=== PATIENT | male | born 1970 ===

== ENCOUNTER 2016-09-30 08:57 | Inpatient (IN) | payer OTHER ==
[~2016-09-30] VITALS: Ht 188 cm; Wt 165.1 kg
[2016-09-30] VITALS (13 sets, daily range): BP systolic 99–146; BP diastolic 65–97
[~2016-09-30 08:57] MED LIST: ceFAZolin 2gm/50ml Premix 50 ML IVPB ONE
[2016-09-30] MEDS ORDERED: CHLORTHALIDONE25 MG ORAL (09:26)
[2016-09-30] MEDS ORDERED: TENORMIN50 MG ORAL (09:26)
[2016-09-30] MEDS ORDERED: AMLODIPINE BESY10 MG ORAL (09:26)
[2016-09-30] MEDS ORDERED: ceFAZolin 2gm/50ml Premix 50 ML IV SCH (09:30)
--- NOTE | 2016-09-30 11:51 | Anethesia Preoperative Eval ---
Anesthesia Pre-op PMH/ROS General Date of Evaluation: Sep 30, 2016 Time of Evaluation: 12:30 ASA Score: ASA 2 Mallampati Score Class I : Soft palate, uvula, fauces, pillars visible Class II: Soft palate, uvula, fauces visible Class III: Soft palate, base of uvula visible Class IV: Only hard plate visible Mallampati Classification: Class II Anesthesia History: none Family History: no anesthesia problems Allergies: Coded Allergies: No Known Allergies (Unverified , 09/28/16) Past Medical History Cardiovascular: Reports: HTN Anesthesia Pre-op Phys. Exam Physician Exam Last Vital Signs Date Time Temp Pulse Resp B/P Pulse Ox O2 Delivery O2 Flow Rate FiO2 09/30/16 09:41 97.5 50 17 132/97 93 Room Air Constitutional: NAD Neurologic: CN 2-12 intact Cardiovascular: RRR Respiratory: CTA Airway Exam Mallampati Score: Class II MO: full ROM: full Teeth: intact Anesthesia Pre-op A/P Risk Assessment & Plan Plan: GA Status Change Before Surgery: No Pre-Antibiotics Given Within 1 Hr of Incision: Yes Moreno Wang M.D. Sep 30, 2016 11:51
--- NOTE | 2016-09-30 12:42 | Pre-Procedure Note/Attestation ---
Pre-Procedure Note/Attestation Complete Prior to Procedure Procedure Narrative: L345 laminoforaminotomy/discectomy Indications for Procedure Pre-Operative Diagnosis: L345 Stenosis/disc protrusion Attestation I attest that I discussed the nature of the procedure; its benefits; risks and complications; and alternatives (and the risks and benefits of such alternatives ), prior to the procedure, with the patient (or the patient's legal bank representative). I attest that, if there was a reasonable possibility of needing a blood transfusion, the patient (or the patient's legal bank representative) was given the [facility] standardized written summary, pursuant to the Jeremias Kulwinder Blood Safety Act ([place] Health and Safety Code # 1645, as amended). I attest that I re-evaluated the patient just prior to the surgery and that there has been no change in the patient's H&P, except as documented below: MATT MONIQUE Sep 30, 2016 12:42
[2016-09-30] MEDS ORDERED: Thrombin 5000 units TOPIC ONE (12:48)
[2016-09-30] MEDS ORDERED: Thrombin 5000 units spray kit TOPIC ONE (12:48)
[2016-09-30] MEDS ORDERED: Bupivacaine w/Epi 0.5% 30ml Vial INJ ONE (12:48)
[2016-09-30] MEDS ORDERED: Bacitracin 50000 Units Vial ONE (12:49)
[2016-09-30] MEDS ORDERED: Gelfoam Absorbable 1gm powder pkt TOPIC ONE (12:49)
[2016-09-30] MEDS ORDERED: NS Irrig 1000ml ONE (13:00)
[2016-09-30] MEDS ORDERED: Midazolam 2mg/2ml Inj ONE (13:00)
[2016-09-30] MEDS ORDERED: Succinylcholine 20mg/ml 10ml vial ONE (13:00)
[2016-09-30] MEDS ORDERED: fentaNYL 100 mcg/2 mL IV ONE (13:00)
[2016-09-30] MEDS ORDERED: Propofol 10mg/ml 20ml IV ONE (13:00)
[2016-09-30] MEDS ORDERED: Morphine Sulfate 10mg/ml Inj ONE (13:00)
[2016-09-30] MEDS ORDERED: Sterile Water Irrig 1000ml IRRIG ONE (13:00)
[2016-09-30] MEDS ORDERED: Glycopyrrolate 0.2mg/ml 1ml Vial ONE (13:00)
--- NOTE | 2016-09-30 14:03 | Immediate Post-Op Evaluation ---
Immediate Post-Op Evalulation Immediate Post-Op Evalulation Procedure: Bilateral Lumbar Lasha laminectomies Date of Evaluation: Sep 30, 2016 Time of Evaluation: 15:00 IV Fluids: 2000 Blood Products: 0 Estimated Blood Loss: 50 Urinary Output: 100 Blood Pressure Systolic: 110 Blood Pressure Diastolic: 78 Pulse Rate: 49 Respiratory Rate: 16 O2 Sat by Pulse Oximetry: 99 Temperature (Fahrenheit): 98 Pain Score (1-10): 0 Nausea: No Vomiting: No Patient Status: awake, reacts, patent Hydration Status: adequate Given Within 1 Hr of Incision: Moreno Anderson M.D. Sep 30, 2016 14:03
--- NOTE | 2016-09-30 14:04 | 48 Hour Post Anesthesia Eval ---
Post Anesthesia Evaluation Procedure: Bilateral Lumbar Lasha laminectomies Date of Evaluation: Oct 02, 2016 Time of Evaluation: 08:00 Blood Pressure Systolic: 140 0: 78 Pulse Rate: 50 Respiratory Rate: 16 Temperature (Fahrenheit): 98 O2 Sat by Pulse Oximetry: 99 Airway: patent Nausea: No Vomiting: No Hydration Status: adequate Mental Status/LOC: patient returned to baseline Follow-up care needed: patient intructions given Moreno Wang M.D. Sep 30, 2016 14:04
[2016-09-30] MEDS ORDERED: Ketorolac 30mg Inj IV PRN (14:15)
[2016-09-30] MEDS ORDERED: Norco 7.5mg/325mg tab ORAL PRN ×3 (14:15→15:45)
[2016-09-30] MEDS ORDERED: Norco 5mg/325mg tab ORAL PRN ×2 (14:15→15:45)
[2016-09-30] MEDS ORDERED: Morphine Sulfate 2mg/ml Inj IVP PRN (14:15)
[2016-09-30] MEDS ORDERED: fentaNYL 100 mcg/2 mL IV PRN (14:15)
[2016-09-30] MEDS ORDERED: Metoclopramide 10mg/2ml Inj IVP PRN ×2 (14:15→15:45)
--- NOTE | 2016-09-30 15:43 | Brief Operative Note ---
Immediate Post Operative Note Operative Note Pre-op Diagnosis: L345 Stenosis/disc protrusion Procedure: L3, L3 and partial L5 laminectomy Post-op Diagnosis: same as pre-op Findings: consistent w/pre-op dx studies Surgeon: shakira Anesthesiologist: nestor Anesthesia: general Specimen: none Complications: none Condition: stable Estimated Blood Loss: minimal Drains: hemovac Implant(s) used?: MATT Grady Sep 30, 2016 15:43
[2016-09-30] MEDS ORDERED: HYDROmorphone 1mg/ml Carpuject SUBQ PRN ×2 (15:45→20:45)
[2016-09-30] MEDS ORDERED: Milk of Magnesia 30ml Ud ORAL PRN (15:45)
[2016-09-30] MEDS: Hydromorphone 0.5mg/0.5ml inj IVP PRN ×2 (16:15→16:31)
[2016-09-30] MEDS: D5 1/2NS 1,000 ML IV SCH (17:40)
[2016-09-30] MEDS: Pericolace tab ORAL SCH (18:26)
[2016-09-30] MEDS: Docusate 100mg cap ORAL SCH (18:26)
[2016-09-30] MEDS ORDERED: Cyclobenzaprine 10mg Tab ORAL PRN (20:45)
[2016-09-30] MEDS ORDERED: Chloraseptic Spray 20mL Bottle ORAL PRN (20:45)
[2016-09-30] MEDS: Tamsulosin 0.4mg cap ORAL SCH (21:36)
[2016-09-30] MEDS: ceFAZolin sod 1 GM in D5W 55 ML IV SCH (21:36)
[2016-10-01 00:15] VITALS: BP 125/73
--- NOTE | 2016-10-01 03:30 | Operative Note - Dictated ---
DATE OF OPERATION: 09/30/2016 SURGEON: Jessee Camejo M.D. DISTRICT ASSOCIATE JUDGE: None. ANESTHESIOLOGIST: MD Phil ANESTHESIA TYPE: General endotracheal anesthesia. PREOPERATIVE DIAGNOSIS: Spinal stenosis, congenital L3, L4, and L5. POSTOPERATIVE DIAGNOSIS: Spinal stenosis, congenital L3, L4, and L5. PROCEDURE: 1. Bilateral laminectomy at L3, L4, and superior portion of L5. 2. Use of operating microscope. 3. Neurodiagnostic monitoring. 4. Use of fluoroscopy. 5. Surgery complicated due to the patient's obesity (BMI 48, total weight 370 pounds). ESTIMATED BLOOD LOSS: Minimal. COMPLICATIONS: None. FINDINGS: Moderately severe central stenosis L3 through L5. INDICATIONS: The patient is a very pleasant 46-year-old with fairly significant back pain and radiculopathic findings. MRI confirmed lateral recess stenosis L3-L4 and L4-L5. Surgical intervention was discussed after all conservative care had failed and the patient was noted to have neurogenic weakness in lower extremities. RISK NOTE: The patient was explained in detail the risks and benefits of surgery to include, but not be limited to, those of bleeding, infection, damage to nerves, vessels, tendons, anesthetic risk, allergic reaction, aspiration, and possibly . The patient elected to proceed. Specifically was discussed potential risk for developing post laminectomy instability. OPERATIVE PROCEDURE IN DETAIL: The patient was taken to the operative suite. After general endotracheal anesthesia was obtained, Engle catheter was placed. The patient was positioned prone onto a radiolucent [place]uneet side table. All bony prominences were well padded. The back was prepped and draped in usual sterile fashion. Fluoroscope was brought in place and the L3 through L5 levels were marked out. The skin was infiltrated with Marcaine with epinephrine. The incision was sharply carried down from L3 through S1. Subperiosteal dissection was carried out bilaterally. A Leslie crank was used to the self-retaining retractors. Please note that the other retractors were not deep enough to allow for adequate exposure. At this point, it was noted that the lamina was very narrow at both the L3 and L4 levels. Initially, my intent was to perform bilateral leonard-hole foraminotomies and laminotomies at both levels. However, due to the marked medial lateral narrowing of the lamina, it was elected to perform a central decompression. The spinous prostheses of L3 was partially removed as well as of L4 was completely removed. High-speed drill was then utilized under microscopic visualization to thin out the lamina. Laminectomy was then performed using the Kerrison 3 and Kerrison 4 punch. Complete laminectomy was performed at L4 and superior portion of L5 was also laminectomized with use of Kerrison punch and high-speed drill. The ligamentum flavum was then removed in a piecemeal fashion. The generous partial medial facetectomies were performed decompressing the lateral recesses. Neural foraminotomies were probed and noted to be adequately decompressed by decompressing the lateral recess. At this point, attention was turned to the L3 level and the inferior two-thirds of the lamina of L3 was also resected in a similar fashion using a high-speed drill and Kerrison punches. Once satisfied with the decompression, copious irrigation was performed. Meticulous hemostasis was achieved. However, due to the patient's deep incision, it was elected to place a medium-sized Hemovac drain. The drain was placed subfascially. Fascia was repaired using #1 Vicryl. Subcutaneous closure using 2-0 Vicryl, running 4-0 Monocryl. Dermabond was applied. The drain was taped into place with Steri-Strips. At the time of this dictation, the patient had been awakened, extubated, and transferred to recovery room in stable condition. Jessee Camejo M.D. DR: PIPO JOB#: [id number] CC: MILDRED
[2016-10-01] MEDS: D5 1/2NS 1,000 ML IV SCH ×2 (03:58→13:40)
[2016-10-01 04:00] VITALS: BP 111/65
--- NOTE | 2016-10-01 04:15 | Consultation ---
DATE OF CONSULTATION: 09/30/2016 CONSULTING PHYSICIAN: Moreno Devries M.D. REFERRING PHYSICIAN: Jessee Camejo M.D. REASON FOR CONSULT: Acute pain consult. HISTORY OF PRESENT ILLNESS: Dear Dr. Jessee Camejo, Thank you kindly for consulting me to evaluate and render an opinion as to how to proceed in the management of the patient's acute postoperative lumbar spine pain after his lumbar spine surgery today. The patient is a massively obese 46-year-old man who lumbar spine back in April. The patient complained of severe pain postoperatively. He required multiple doses of Dilaudid, but supposedly this pain control is inadequate. With his massive obesity, you consulted me for acute pain consultation to best optimize his pain control and minimize the risk for postoperative complications. I saw the patient at bedside with his . I discussed the case with yourself, Dr. Camejo along with the hospital pharmacist and the nurse RN, Muriel. I spent over 75 minutes in consultation with an additional 30 minutes and medical records reviewed. PAST MEDICAL HISTORY: 1. Acute postoperative lumbar spine pain, status post lumbar spine surgery by Dr. Jessee Camejo in 09/2016. 2. Work-related injury. 3. Massive obesity. 4. Hypertension. PAST SURGICAL HISTORY: None prior. FAMILY HISTORY: Negative. SOCIAL HISTORY: The patient lives at home with his . He denies tobacco, alcohol, or illicit drug use for over 10 years. ALLERGIES: No known drug allergies. MEDICATIONS: At home, NSAIDs, Norvasc, atenolol, and chlorthalidone. REVIEW OF SYSTEMS: Per attending physician. PHYSICAL EXAMINATION: VITAL SIGNS: Age 46, height 6 feet 1 inch, weight 165 kilogram with body mass index of 47. Vital signs, afebrile, pulse 65, respirations 20, blood pressure 135/70, and oxygen saturation 96% on supplemental oxygen. HEENT: Shows thick neck. Nasal cannula oxygen in place. Moving all extremities x4 with 5/5 dorsiflexion, 5/5 plantar flexion in bilateral lower extremities. Pain with log rolling and by lumbar spine midline incision. Significant neck drain holding suction. NEUROLOGIC: Detailed neurologic exam per Dr. Camejo. CHEST: Massively barrel chested with no accessory muscles noted. HEART: Regular rate and rhythm. ABDOMEN: Positive pannus. Positive bowel sounds. No rebound or guarding. Engle catheter in place. GENITOURINARY: Deferred. LABORATORY AND DIAGNOSTIC DATA: Diagnostic testing shows a 12-lead EKG, normal sinus rhythm, ventricular rate 57. Preoperative chest x-ray shows no radiographic evidence of acute cardiopulmonary disease dated 09/10/2016. Laboratory studies 09/10/2016 shows glucose 94, sodium 142, potassium 3.5, chloride 101, bicarbonate 26, BUN 20, creatinine 1.1, and calcium 9.8. Phosphorus is 4.0. Total protein is 7.5 and albumin is 4.5. AST 28, ALT 30, and alkaline phosphatase 53. LDH 198. Total bilirubin 0.6. Uric acid high at 8.7. Magnesium 2.2. 32. TSH 2.5. Glycosylated hemoglobin normal 5.3. White count 8, hematocrit 51, and platelets 290,000. INR 1.0, PTT 33. IMPRESSION: 1. Acute postoperative lumbar spine pain, status post lumbar spine surgery by Dr. Jessee Camejo in 09/2016. 2. Work-related injury. 3. Massive obesity. 4. Hypertension. TREATMENT AND RECOMMENDATIONS: To help with this patient's pain control, I devised the following analgesic plan. The patient already has been requiring high doses of breakthrough Dilaudid for analgesia. He states that hydrocodone has been tolerated well in the past and I would recommend [place] 10/325 mg two tablets at a time every four hours p.r.n. for mild pain. I would continue the breakthrough Dilaudid injections at a dose of 1 mg subcutaneously every three hours p.r.n. for severe breakthrough pain. The patient states that he has tolerated Flexeril in the past and I have ordered 10 mg dose every eight hours p.r.n. for muscle spasms. For any sore throat complaints, I have ordered Chloraseptic spray to be placed at the bedside for topical analgesia. I will empirically place the patient on Protonix 40 mg nightly for GI ulcer prophylaxis along with a p.r.n. dose of Mylanta 30 mL p.r.n. for any GERD symptom exacerbation. I have ordered Zofran 4 mg intravenously every four hours p.r.n. for nausea and vomiting with a second-line agent of Phenergan 12.5 mg intramuscularly. I did personal financial counselor the patient about postoperative opioid-induced constipation. I will place the patient on Colace and Senokot b.i.d. to help with bowel regularity. Milk of magnesia is available as a rescue laxative. I will empirically place the patient on Flomax 0.4 mg tonight to help reduce the risk for urinary retention issues once the Engle catheter is removed in the morning. I have ordered incentive spirometer to encourage good pulmonary toilet in this massively obese gentleman who is at high risk for pulmonary atelectasis. The patient will use sequential compression pneumatic devices for DVT prophylaxis. Comprehensive review of the medical records was performed. Records reviewed from multiple reports include preoperative history and physical by Dr. Meek Grier in 08/2016 along with laboratory studies, 12-lead EKG, and chest x-ray. Further records reviewed include multiple records in today's date of surgery at [facility], 09/30/2016 including consent for surgical treatment, consent for anesthesia, consent for blood products, medication administration record, medication reconciliation order form, PACU record, PACU orders, anesthesia record, pre and post anesthesia evaluation record, guidelines for prophylactic antibiotics, guidelines for DVT prophylaxis, postoperative spine surgical orders and postoperative surgery report by Dr. Camejo, multiple records from the nursing and pharmacy department. Moreno Devries M.D. DR: HARVEY JOB#: [id number] CC:
[2016-10-01] MEDS: ceFAZolin sod 1 GM in D5W 55 ML IV SCH ×2 (04:21→13:00)
[2016-10-01 08:00] VITALS: BP 114/72
--- NOTE | 2016-10-01 08:03 | Orthopedic Spine Progress Note ---
Ortho Spine - Progress Note Subjective Symptoms: c/o post-op back pain, improved - as compared to pre-op Objective Vital Signs: Last 24 Hour Vital Signs Date Time Temp Pulse Resp B/P Pulse Ox O2 Delivery O2 Flow Rate FiO2 10/01/16 04:00 98.0 56 18 111/65 94 Room Air 10/01/16 00:15 98.2 64 18 125/73 95 Nasal Cannula 2.0 09/30/16 21:50 Nasal Cannula 2.0 09/30/16 21:50 94 Nasal Cannula 2.0 09/30/16 21:36 81 112/69 09/30/16 20:09 98.1 81 19 112/69 93 Room Air 09/30/16 18:59 97.9 09/30/16 18:08 97.9 65 20 135/70 96 Nasal Cannula 2.0 09/30/16 17:30 97.4 65 20 111/65 92 Nasal Cannula 2.0 09/30/16 17:15 97.6 53 17 138/74 97 Nasal Cannula 2.0 09/30/16 17:01 97.5 09/30/16 17:00 54 18 146/75 96 Nasal Cannula 2.0 09/30/16 16:45 49 17 129/67 96 Nasal Cannula 2.0 09/30/16 16:30 50 17 118/70 95 Nasal Cannula 2.0 09/30/16 16:15 52 18 120/71 96 Nasal Cannula 2.0 09/30/16 16:05 55 17 120/70 96 Nasal Cannula 2.0 09/30/16 15:55 58 16 110/71 96 Nasal Cannula 2.0 09/30/16 15:50 62 16 99/65 96 Nasal Cannula 2.0 09/30/16 15:45 97.5 65 15 106/67 96 Simple Mask 6.0 09/30/16 14:04 50 16 99 09/30/16 14:03 49 16 99 09/30/16 09:41 97.5 50 17 132/97 93 Room Air I&O: Intake and Output 09/30/16 10/01/16 19:00 07:00 Intake Total 2320 ml 1980 ml Output Total 150 ml 1960 ml Balance 2170 ml 20 ml Intake Oral 220 ml 980 ml IV Total 2100 ml 1000 ml Output Urine Total 100 ml 1790 ml Drainage Total 170 ml Estimated Blood Loss 50 ml # Voids 1 Wound: clean, intact Drains: hemovac Neuro Status: normal Assessment Procedure Performed: L3, L3 and partial L5 laminectomy Plan Plan: PT, pain management, continue drain MATT MONIQUE Oct 01, 2016 08:03
[2016-10-01] MEDS: Norco 10mg/325mg tab ORAL PRN ×2 (09:01→18:15)
[2016-10-01] MEDS: Pericolace tab ORAL SCH ×2 (09:02→18:15)
[2016-10-01] MEDS: Docusate 100mg cap ORAL SCH ×2 (09:02→18:15)
[2016-10-01 12:00] VITALS: BP 110/67
[2016-10-01 16:00] VITALS: BP 124/78
--- NOTE | 2016-10-01 16:27 | Diagnostic Imaging Report ---
Indication: PAIN, intraoperative Technique: Intraoperative images Comparison: Findings: Initial image demonstrates needles posterior to what are presumably L3 and L4. Subsequent image demonstrates a surgical tool posterior to the L4-5 disc Impression: Intraoperative imaging, as described
[2016-10-01 20:00] VITALS: BP 134/78
[2016-10-01] MEDS: Tamsulosin 0.4mg cap ORAL SCH (20:38)
--- NOTE | 2016-10-01 22:15 | Progress Note ---
DATE: 10/01/2016 ACUTE PAIN MANAGEMENT PHYSICIAN PROGRESS NOTE MEDICATIONS: Medication administration record reviewed. Medications include Mylanta, Norvasc, Tenormin, hypertensive medications, Flexeril, Benadryl, Colace, Dolphin, Dilaudid, morphine, Zofran, Protonix, Chloraseptic, Phenergan, Ana-Colace, and Flomax. LABORATORY STUDIES: No interval laboratory studies. PHYSICAL EXAMINATION: VITAL SIGNS: Afebrile, pulse 59, respirations 20, blood pressure 110/67, and oxygen saturation 95% on room air. I saw the patient at the bedside after discussing with the surgeon, Dr. Camejo and nurse RN, Inga. Output from the indwelling lumbar spine drain catheter overnight was 100 mL and continues to have significant output this morning with over 60 mL for the early dayshift. Per Dr. Camejo, we will maintain the lumbar spine drain catheter in place for now and follow the output. The patient denies any headache symptoms. The patient appeared grossly neurologically intact. He has been out of bed frequently sitting in a chair and ambulating. Nausea symptoms have improved and the patient has been advancing his diet without difficulties. I would Hep-Lock his intravenous fluids in order to encourage movement in and out of bed. He is massively obese and is at significant risk for deep venous thrombosis and pulmonary embolism complications if he remains sedentary. I did provide the a prescription for outpatient pain medications, which the will be dropping off at a local pharmacy later today to help expedite dispensing and insurance carrier authorization. I encouraged continued aggressive incentive spirometer usage and will continue his current analgesic regimen at this time. The p.r.n. doses of Dolphin and breakthrough Dilaudid seemed to be adequate without oversedation noted. His blood pressure seems to be well controlled at this time as well. Moreno Devries M.D. DR: LYNN JOB#: [id number] CC:
[2016-10-02 00:19] VITALS: BP 121/69
[2016-10-02 04:40] VITALS: BP 130/72
[2016-10-02 08:25] VITALS: BP 118/71
--- NOTE | 2016-10-02 08:35 | Orthopedic Spine Progress Note ---
Ortho Spine - Progress Note Subjective Symptoms: c/o post-op back pain, improved - as compared to pre-op Objective Vital Signs: Last 24 Hour Vital Signs Date Time Temp Pulse Resp B/P Pulse Ox O2 Delivery O2 Flow Rate FiO2 10/02/16 08:25 99.7 76 19 118/71 94 Room Air 10/02/16 04:40 98.1 72 17 130/72 94 Room Air 10/02/16 00:19 98.1 63 17 121/69 94 Room Air 10/01/16 20:00 98.4 71 18 134/78 93 Room Air 10/01/16 19:14 99.3 10/01/16 16:00 99.3 60 20 124/78 98 Room Air 10/01/16 12:00 97.9 59 20 110/67 95 Room Air 10/01/16 09:03 61 114/72 10/01/16 09:02 56 111/65 I&O: Intake and Output 10/01/16 10/02/16 19:00 07:00 Intake Total 1660 ml 240 ml Output Total 360 ml 90 ml Balance 1300 ml 150 ml Intake Oral 960 ml 240 ml IV Total 700 ml Output Urine Total 300 ml Drainage Total 60 ml 90 ml # Voids 3 # Bowel Movements 1 1 Wound: clean, intact Drains: hemovac Neuro Status: normal Assessment Procedure Performed: L3, L3 and partial L5 laminectomy Plan Plan: PT, pain management, d/c drain - later today, discharge plan MATT MONIQUE Oct 02, 2016 08:35
[2016-10-02] MEDS: Docusate 100mg cap ORAL SCH (08:43)
[2016-10-02] MEDS: Pericolace tab ORAL SCH (08:43)
[2016-10-02 12:00] VITALS: BP 131/77
[2016-10-02] MEDS ORDERED: NORCO 10-325 T1 EACH ORAL (12:02)
[2016-10-02] MEDS ORDERED: CYCLOBENZAPRINE10 MG ORAL (12:06)
[2016-10-02] MEDS: Norco 10mg/325mg tab ORAL PRN (12:14)
[2016-10-02] MEDS ORDERED: D5 1/2NS 1000ml IV ONE (12:51)
[2016-10-02] MEDS ORDERED: Tubing IV Secondary IV ONE (12:51)
--- NOTE | 2016-10-02 19:02 | Progress Note ---
DATE: 10/02/2016 ACUTE PAIN MANAGEMENT PHYSICIAN PROGRESS NOTE MEDICATIONS: Medication administration record reviewed. Medications include Flomax, Ana-Colace, Phenergan, Chloraseptic spray, Protonix, Zofran, morphine, milk of magnesia, Dilaudid, [place], Colace, Benadryl, Flexeril, Catapres, chlorthalidone, Tenormin, Norvasc, and Mylanta. LABORATORY STUDIES: No interval laboratory studies. OBJECTIVE: VITAL SIGNS: Temperature 98.1, pulse 76, respirations 19, oxygen saturation 94% on room air, and blood pressure 118/71. I saw the patient at bedside with the RN, Nancy. I discussed the case with the surgeon Dr. Camejo. Dr. Camejo evaluated the patient earlier this morning. There was still was over 50 mL of Hemovac lumbar spine drain catheter drainage overnight and Dr. Camejo requested to keep the Hemovac drain in place for a few more hours as the patient ambulates to see how the output would be. Over the past four hours, there has been zero drainage from the indwelling lumbar spine drain catheter. The patient has been advancing his diet well. The patient's was already given a prescription for outpatient pain medications. The patient denies any shortness of breath or chest pain. The patient is massively obese and has been counseled to ambulate frequently for DVT prophylaxis. The patient has been restarted on his home blood pressure medications and has been having stable vital signs including blood pressure and heart rate. Since the drainage from the indwelling lumbar spine together has decreased significantly, I agree with the surgeon to remove the drain and discharge the patient home. The patient is comfortable for discharge home trial later this afternoon. His will be driving him from [place], [place] to return him home. I have asked the nurse Nancy to dose the patient with his oral and if necessary parental narcotics to help with the long drive [place] [address]. The patient was turned to the right lateral decubitus position. Examination of the lumbar spine dressing was performed. Dressing was removed showing the incision line clean and dry with Steri-Strips in place. Steri-Strips were holding the indwelling lumbar spine drain catheter in place with no evidence of erythema or exudate. I removed the Steri-Strips holding in the indwelling lumbar spine drain catheter. Then, at the end-expiration, with the Hemovac drain taken off of suction, I personally removed the indwelling lumbar spine drain catheter. The tip was intact. Alcohol swab was applied generously to the drain hole site. was applied at the wound site without any complications. Moreno Devries M.D. DR: SANDY JOB#: [id number] CC:
--- NOTE | 2016-10-03 13:55 | Discharge Summary ---
Discharge Summary Hospital Course Date of Admission Sep 30, 2016 at 08:57 Date of Discharge Oct 02, 2016 at 12:52 Admitting Diagnosis HPI Josh Lin is a 46 year old male who was admitted on Sep 30, 2016 at 08:57 for Spinal Stenosis L3-4,L4-5 Hospital Course [id number] Discharge Discharge Disposition Patient was discharged to Home (01) Discharge Diagnoses: Dana Blake NP Oct 03, 2016 13:55
--- NOTE | 2016-10-04 10:15 | Discharge Summary 2 SIG ---
DATE OF ADMISSION: 09/30/2016 DATE OF DISCHARGE: 10/02/2016 BRIEF HOSPITAL COURSE: The patient is a 46-year-old male, who underwent lumbar spine surgery way back April 2016. The patient had a lumbar back surgery in May 2016 and complained of severe pain, was admitted on 09/30/2016, and underwent bilateral laminectomy on L3-L4 and superior portion of L5. Postoperatively, he was given pain management and was seen by . He was given Dilaudid and [place]. He was given Protonix and Mylanta for gastrointestinal prophylaxis and Flexeril p.r.n. spasms. The patient underwent physical therapy. Drain was discontinued and was eventually discharged home. FINAL DIAGNOSES: Spinal stenosis at L3, L4, and L5, status post bilateral laminectomy. DISPOSITION: The patient was discharged home. DISCHARGE MEDICATIONS: Refer to med list. FOLLOWUP: Follow up with surgeon in one to two weeks. Jessee Camejo M.D. I have been assigned to dictate discharge summary on this account and I was not involved in the patient's management. Dana Blake N.P. DR: SIDNEY JOB#: [id number] CC:
== END 2016-10-02 12:52 | disposition home or self-care (01) | DRG 519 ==
LOC: SDSOVERFLO 08:57 → 3E 17:28
PROC: 0ST20ZZ Resection of Lumbar Vertebral Disc, Open Approach (ICD-10-PCS; principal; 2016-09-30 11:30)
DX: M48.06 Spinal stenosis, lumbar region (principal); Z68.42 Body mass index [BMI] 45.0-49.9, adult; I10 Essential (primary) hypertension; M51.16 Intervertebral disc disorders with radiculopathy, lumbar region; E66.01 Morbid (severe) obesity due to excess calories
CPT/HCPCS: 36415; 72020; 76000; 86850; 86900; 86901; 87081; 94003; 94150; 94760; C9399; J2250